=== PATIENT | male | born 2000 | race Caucasian/White ===

== ENCOUNTER 2023-08-08 10:24 | Emergency (ER) | payer BC ==
[2023-08-08] MEDS: Ketorolac 60 MG/2 ML SDV IM ONE (11:31)
[2023-08-08] MEDS: Orphenadrine 100 MG Tab.ER PO STA (11:32)
== END 2023-08-08 13:11 | disposition home or self-care (01) ==
LOC: JD.ED 10:24
DX: M54.6 Pain in thoracic spine (principal); Z79.899 Other long term (current) drug therapy
CPT/HCPCS: 72070; 96372; 99283; A9270; J1885